=== PATIENT | female | born 1945 | race Caucasian/White ===

== ENCOUNTER 2019-05-29 14:25 | Inpatient (IN) ==
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
[2019-05-29] MEDS ORDERED: VANCOMYCIN 1 GM/NS 1 GM/250 ML IVPB IV ONE (16:53)
[2019-05-29] MEDS ORDERED: VANCOMYCIN IV PER PHARMACY MISC SCH (17:15)
[2019-05-29 17:24] LABS: BASO# 0.01 X1000 (0.0-0.2); BASO% 0.1 % (0.0-0.8); EOS# 0.13 X1000 (0.0-0.7); EOS% 1.7 % (0.0-10.0); HEMATOCRIT 40.9 % (37.0-47.0); HEMOGLOBIN 13.3 g/dL (12.0-16.0); LYMPH# 0.97 X1000 (1.2-3.4); LYMPH% 12.6 % (20.5-51.1); MCH 33.2 PG (27-31); MCHC 32.5 g/dL (33-37); MONO# 1.15 X1000 (0.11-0.59); MONO% 14.9 % (1.7-9.3); MPV 10.4 FL (7.4-10.4); NEUT# 5.45 X1000 (1.4-6.5); NEUT% 70.7 % (42.2-75.2); PLT 205 X1000 (130-400); RBC 4.01 XMIL (4.2-5.4); RDW 13.2 % (11.5-14.5); WBC 7.71 X1000 (4.8-10.8)
[2019-05-29 17:26] LABS: INR 0.86; PROTIME 11.8 Seconds (11.0-16.0)
[2019-05-29 17:27] LABS: PTT 38.2 Seconds (22.3-41.8)
[2019-05-29 17:38] LABS: AGAP 16; ALB/GLOB RATIO 1.1; ALBUMIN 4.3 g/dL (3.5-5.0); ALKALINE PHOSPHATASE 92 U/L (32-104); BUN 14 mg/dL (8-22); CALCIUM 10.1 mg/dL (8.8-10.2); CHLORIDE 99 mmol/L (98-107); COSMO 277; CREATININE 0.7 mg/dL (0.5-0.9); ESTIMATED GFR > 60; GLUCOSE 119 mg/dL (70-104); GOT 20 U/L (10-30); GPT 12 U/L (10-36); MAGNESIUM 1.7 mg/dL (1.5-2.7); POTASSIUM 3.9 mmol/L (3.5-5.1); SODIUM 138 mmol/L (136-145); TCO2 23 mmol/L (25-35); TOTAL BILIRUBIN 0.29 mg/dL (0.20-1.00); TOTAL PROTEIN 8.1 g/dL (6.3-8.3)
[2019-05-29] MEDS: NS 1,000 ML IV SCH (18:09)
[2019-05-29] MEDS: CLINDAMYCIN 600 MG/D5W 600 MG/50 ML IVPB IV SCH (18:12)
[2019-05-29] MEDS: NORCO-10 PO PRN (18:12)
[2019-05-29] MEDS: VANCOMYCIN 1 GM/NS 1 GM/250 ML IVPB IV SCH (18:35)
[2019-05-29] MEDS: PRAVACHOL PO SCH (20:03)
[2019-05-29] MEDS: LOPRESSOR PO SCH (21:14)
[2019-05-29 21:16] LABS: URINE SOURCE CLEAN CATCH
[2019-05-29 21:28] LABS: BILIRUBIN URINE NEGATIVE (NEGATIVE); BLOOD URINE SMALL (NEGATIVE); COLOR YELLOW; GLUCOSE URINE NEGATIVE (NEGATIVE); KETONE URINE TRACE mg/dL (NEGATIVE); LEUKOCYTES URINE TRACE (NEGATIVE); NITRITE URINE NEGATIVE (NEGATIVE); PROTEIN URINE 70 mg/dL (NEGATIVE); SP GRAVITY URINE 1.031; TURBIDITY URINE HAZY (CLEAR); UROBILINOGEN URINE 3 mg/dL (NORMAL)
[2019-05-29 21:29] LABS: UR EPITHELIAL CELLS >10 /HPF (<10); URINE BACTERIA NEGATIVE /HPF; URINE RBC <10 /HPF (<10)
[2019-05-30] MEDS: NORCO-10 PO PRN ×4 (00:23→22:30)
[2019-05-30] MEDS: CLINDAMYCIN 600 MG/D5W 600 MG/50 ML IVPB IV SCH ×3 (01:06→17:53)
[2019-05-30] MEDS: NS 1,000 ML IV SCH ×2 (04:38→18:01)
[2019-05-30] MEDS: PRILOSEC PO SCH (06:04)
--- NOTE | 2019-05-30 06:32 | Diag Imaging Result Doc PS360 ---
EXAM: CHEST-PORTABLE HISTORY: cellulitis TECHNIQUE: Portable chest single view COMPARISON: 08/26/2015 FINDINGS: The lungs are well expanded. The heart is not enlarged. The vessels are not distended. There are no infiltrates. No effusion identified. Left granuloma. IMPRESSION: Negative exam. Electronically signed by David Narayan 05/30/2019 6:29 AM
--- NOTE | 2019-05-30 07:31 | EKG Report ---
Test Performed on : 05/30/2019 07:12:03 AM Test Reason : chest pain Blood Pressure : / mmHG Vent. Rate : 082 BPM Atrial Rate : 082 BPM P-R Int : 164 ms QRS Dur : 080 ms QT Int : 394 ms P-R-T Axes : 078 031 076 degrees QTc Int : 460 ms Normal sinus rhythm. Normal ECG When compared with ECG of 17-MAY-2015 12:01, Minimal criteria for Anterior infarct are no longer present Nonspecific T wave abnormality no longer evident in Lateral leads Confirmed by Kelly AMATO, Juan Guzman ([id number]) on 05/31/2019 6:59:40 AM
[2019-05-30] MEDS: CENTRUM SILVER PO SCH (08:19)
[2019-05-30] MEDS: ICAR-C PO SCH (08:19)
[2019-05-30] MEDS: CALTRATE 600 + D PO SCH (08:19)
[2019-05-30] MEDS: ALTACE PO SCH (08:20)
[2019-05-30] MEDS: ASPIRIN PO SCH (08:20)
[2019-05-30] MEDS: LOPRESSOR PO SCH ×2 (08:21→20:18)
--- NOTE | 2019-05-30 10:16 | PROGRESS NOTE ---
DATE: 05/30/2019 SUBJECTIVE: Ms. Michael has remained afebrile. She has tenderness really going down to the proximal metatarsals and left hand, the dorsum of the hand. No drainage. Cellulitis extending from almost the elbow, down to her metatarsals. OBJECTIVE: Vital Signs: Temperature 98.1 degrees, pulse 80, respirations 18, blood pressure 110/66. HEENT: Pupils are equal and round. Lungs: Clear in all lung lomas. Cardiovascular: Regular rhythm and rate without murmur or S3. Abdomen: Soft. Skin: Warm and dry. Urine output is 600 mL. ASSESSMENT AND PLAN: 1. Cellulitis. Cat bite on her left arm does not appear to be necrotizing fasciitis, but she is having tenderness in the dorsum of the hand to the metatarsals. The plan, I think, is that Dr. Marcelino Harvey is going to open it up and debride it and put a wound VAC on it. She is right now on clindamycin and vancomycin, which covers for gram-positive organisms, and I think I will add Rocephin just to have a better gram-negative coverage. 2. History of coronary artery disease. No sign of active ischemia. 3. History of osteoarthritis and chronic pain. Aware. REVIEW OF ORDERS: I do not see any change at this point, except that we will add Rocephin 1 gram daily. cc: Dejuan Mathias MD
[2019-05-30] MEDS: ROCEPHIN 1 GM in NS 50 ML IV SCH (13:33)
[2019-05-30] MEDS: PRAVACHOL PO SCH (20:18)
[2019-05-31] MEDS: CLINDAMYCIN 600 MG/D5W 600 MG/50 ML IVPB IV SCH ×3 (00:04→18:31)
[2019-05-31] MEDS: NORCO-10 PO PRN ×2 (02:44→11:03)
[2019-05-31] MEDS: NS 1,000 ML IV SCH ×3 (04:55→19:49)
[2019-05-31] MEDS: VANCOMYCIN 1 GM/NS 1 GM/250 ML IVPB IV SCH (05:00)
[2019-05-31] MEDS: PRILOSEC PO SCH (06:11)
[2019-05-31 07:25] LABS: BASO# 0.01 X1000 (0.0-0.2); BASO% 0.2 % (0.0-0.8); EOS# 0.18 X1000 (0.0-0.7); EOS% 3.5 % (0.0-10.0); HEMOGLOBIN 10.6 g/dL (12.0-16.0); LYMPH# 1.41 X1000 (1.2-3.4); LYMPH% 27.8 % (20.5-51.1); MCH 32.3 PG (27-31); MCHC 31.2 g/dL (33-37); MCV 103.7 FL (81-99); MONO# 0.75 X1000 (0.11-0.59); MONO% 14.8 % (1.7-9.3); MPV 10.8 FL (7.4-10.4); NEUT# 2.73 X1000 (1.4-6.5); NEUT% 53.7 % (42.2-75.2); PLT 194 X1000 (130-400); RBC 3.28 XMIL (4.2-5.4); RDW 13.2 % (11.5-14.5); WBC 5.08 X1000 (4.8-10.8)
[2019-05-31] MEDS ORDERED: DIPRIVAN 1% ONE ×2 (08:04→09:02)
[2019-05-31] MEDS ORDERED: XYLOCAINE-MPF 2% ONE ×2 (08:05→09:02)
[2019-05-31] MEDS ORDERED: FENTANYL ONE ×2 (08:05→10:04)
[2019-05-31] MEDS ORDERED: ZOFRAN ONE (08:05)
[2019-05-31 08:13] LABS: AGAP 13; BUN 8 mg/dL (8-22); CALCIUM 8.4 mg/dL (8.8-10.2); CHLORIDE 107 mmol/L (98-107); COSMO 281; CREATININE 0.4 mg/dL (0.5-0.9); ESTIMATED GFR > 60; GLUCOSE 90 mg/dL (70-104); POTASSIUM 3.6 mmol/L (3.5-5.1); SODIUM 142 mmol/L (136-145); TCO2 22 mmol/L (25-35)
--- NOTE | 2019-05-31 09:31 | PROGRESS NOTE ---
DATE: 05/31/2019 SUBJECTIVE: Ms. Michael feels a little better. Arm is a little less tender especially distally at the wrist. She is able to make a fist. OBJECTIVE: Vital signs: Temperature 98.2, pulse 69, respirations 16, blood pressure 134/60. HEENT: Pupils are equal and round. Lungs: Clear in all lung lomas. Cardiovascular exam: Regular rhythm and rate without murmur or S3. Abdomen: Soft. Skin: Warm and dry. Urine output is 1600 mL. ASSESSMENT AND PLAN: 1. Cellulitis, deep tissue fasciitis as well. Dr. Harvey is planning on opening that and debriding it and putting a wound VAC on. She is on Rocephin, clindamycin, and vancomycin at this point. I think we can back that down pretty soon. 2. History of coronary artery disease. No sign of active ischemia. 3. History of osteoarthritis. REVIEW OF HER ORDERS: She is on pravastatin 40 mg at bedtime, aspirin 81 mg a day, calcium carbonate 1 a day, clindamycin 600 mg IV q.8 hours, getting hydrocodone p.r.n. pain, iron carbonyl and ascorbic acid 1 a day, Lopressor 12.5 mg b.i.d., multivitamin 1 a day, normal saline 85 mL an hour, Altace 5 mg a day, ceftriaxone 1 g q.24 hours, vancomycin 1 g q.36 hours. LABORATORY: Lab from this morning, white count 5080, hematocrit 34, platelet count 194,000. Sodium 142, potassium 3.6, chloride 107, BUN 8, creatinine 0.4, calcium 8.4. cc: Dejuan Mathias MD
[2019-05-31] MEDS: ALTACE PO SCH (11:29)
[2019-05-31] MEDS: ICAR-C PO SCH (11:29)
[2019-05-31] MEDS: CALTRATE 600 + D PO SCH (11:29)
[2019-05-31] MEDS: CENTRUM SILVER PO SCH (11:29)
[2019-05-31] MEDS: LOPRESSOR PO SCH ×2 (11:29→20:54)
[2019-05-31] MEDS: ASPIRIN PO SCH (11:30)
[2019-05-31] MEDS: ROCEPHIN 1 GM in NS 50 ML IV SCH (11:30)
[2019-05-31] MEDS ORDERED: ZOFRAN IV PRN (12:14)
[2019-05-31] MEDS ORDERED: ZOFRAN PO PRN (12:14)
[2019-05-31] MEDS: NORCO-5 PO PRN (15:17)
--- NOTE | 2019-05-31 15:38 | OPERATIVE NOTE ---
PROCEDURE DATE: 05/31/2019 PREOPERATIVE DIAGNOSIS: Cat bite, left forearm. POSTOPERATIVE DIAGNOSIS: Cat bite, left forearm. PROCEDURE: Debridement 5 x 3 x 0.5 cm with placement of wound VAC. DESCRIPTION OF PROCEDURE IN DETAIL: The patient was brought to the operating room. After satisfactory induction of IV and LMA anesthesia, her left forearm was prepped and draped in the appropriate manner. There is scarring from a total shoulder replacement in the left shoulder. The cat bites were in the mid forearm on the dorsal aspect; 2 canine punctures several centimeters apart. Oval incision incorporating both fang romero was excised with skin and subcutaneous tissue down to the fascia. Muscle appeared satisfactory beneath the fascia. Anaerobic and aerobic cultures were obtained. Hemostasis was obtained by electrocautery. A wound VAC was subsequently deployed after peroxide irrigation. A satisfactory seal was obtained. The patient was subsequently awakened and extubated in the operating room and transferred to recovery. Estimated blood loss Was around 20 mL. cc: MD Dejuan Santoyo MD
[2019-05-31] MEDS: PRAVACHOL PO SCH ×2 (19:46→20:54)
[2019-06-01] MEDS: CLINDAMYCIN 600 MG/D5W 600 MG/50 ML IVPB IV SCH ×3 (00:03→17:17)
[2019-06-01] MEDS: NORCO-5 PO PRN ×3 (00:03→22:03)
[2019-06-01] MEDS: NS 1,000 ML IV SCH ×3 (04:04→17:18)
[2019-06-01] MEDS: PRILOSEC PO SCH (06:11)
[2019-06-01] MEDS: CALTRATE 600 + D PO SCH (08:00)
[2019-06-01] MEDS: ASPIRIN PO SCH (08:01)
[2019-06-01] MEDS: LOPRESSOR PO SCH ×3 (08:01→20:51)
[2019-06-01] MEDS: ALTACE PO SCH (08:01)
[2019-06-01] MEDS: CENTRUM SILVER PO SCH (08:01)
[2019-06-01] MEDS: ICAR-C PO SCH (08:01)
[2019-06-01] MEDS ORDERED: THERA M PLUS PO SCH (09:00)
[2019-06-01] MEDS: ROCEPHIN 1 GM in NS 50 ML IV SCH (09:20)
--- NOTE | 2019-06-01 10:00 | PROGRESS NOTE ---
DATE: 06/01/2019 SUBJECTIVE: Ms. Michael feels much better. Heart feels better. She has a wound VAC on the left dorsal arm. She is able to make a little tighter fist. It still hurts down into the proximal hand around her proximal metacarpals, but much less discomfort, more range of motion. OBJECTIVE: Vital Signs: Temperature 98.0 degrees, pulse 70, respirations 18, blood pressure 155/88. Eyes: Pupils are equal and round. Lungs: Clear in all lung lomas. Cardiovascular exam: Regular rhythm and rate without murmur or S3. Abdomen: Soft. Skin: Warm and dry. : Urine output is 1400 mL. ASSESSMENT AND PLAN: Cat bite to left forearm with cellulitis. Dr. Marcelino Harvey did some debridement and placed a wound VAC. She is doing better. She is on broad-spectrum antibiotics. The urine did grow yeast 10,000, and Gram stain showed some white blood cells. Cultures pending. She is on clindamycin 600 mg intravenous every 8 hours. She is on Rocephin 1 g daily and vancomycin 1 gram intravenous every 36 hours. Doing better. Continue present regimen. Possibly home on Monday. cc: Dejuan Mathias MD
[2019-06-01] MEDS: VANCOMYCIN 1 GM/NS 1 GM/250 ML IVPB IV SCH (18:11)
[2019-06-01] MEDS: PRAVACHOL PO SCH ×2 (19:53→20:51)
[2019-06-02] MEDS: NS 1,000 ML IV SCH ×3 (02:06→11:05)
[2019-06-02] MEDS: CLINDAMYCIN 600 MG/D5W 600 MG/50 ML IVPB IV SCH ×3 (02:06→17:49)
[2019-06-02] MEDS: NORCO-5 PO PRN ×3 (05:48→19:41)
[2019-06-02] MEDS: PRILOSEC PO SCH ×2 (05:48→06:00)
[2019-06-02] MEDS: LOPRESSOR PO SCH ×3 (10:12→20:06)
[2019-06-02] MEDS: ROCEPHIN 1 GM in NS 50 ML IV SCH (10:13)
[2019-06-02] MEDS: ALTACE PO SCH (10:13)
[2019-06-02] MEDS: ICAR-C PO SCH (10:13)
[2019-06-02] MEDS: CALTRATE 600 + D PO SCH (10:13)
[2019-06-02] MEDS: ASPIRIN PO SCH (10:13)
[2019-06-02] MEDS: CENTRUM SILVER PO SCH (10:14)
--- NOTE | 2019-06-02 10:16 | PROGRESS NOTE ---
DATE: 06/02/2019 SUBJECTIVE: Ms. Michael feels much better. She can make a fist, almost make a tight fist with her left hand, and much less pain and swelling. She has a wound VAC on the left forearm. OBJECTIVE: Temperature 98.2 degrees, pulse 60, respirations 16, blood pressure 137/76. Pupils are equal and round. Lungs are clear in all lung lomas. Cardiovascular Examination: Regular rhythm and rate without murmur or S3. Abdomen is soft. Skin is warm and dry. Urine output was 2600 mL. ASSESSMENT AND PLAN: 1. Cat bite to the left forearm with cellulitis and a little bit of fasciitis. Had a debridement per Dr. Marcelino Harvey and wound VAC on the arm. Doing much better. Hopefully, she can go home tomorrow. Cultures have not revealed anything yet. 2. History of coronary artery disease. Aware. No sign of active ischemia. 3. History of osteoarthritis. cc: Dejuan Mathias MD
[2019-06-02] MEDS: PRAVACHOL PO SCH ×2 (19:40→20:06)
[2019-06-03] MEDS: NS 1,000 ML IV SCH (02:05)
[2019-06-03] MEDS: NORCO-5 PO PRN ×2 (02:14→12:52)
[2019-06-03] MEDS: CLINDAMYCIN 600 MG/D5W 600 MG/50 ML IVPB IV SCH ×2 (02:15→08:25)
[2019-06-03] MEDS: PRILOSEC PO SCH ×2 (05:50→05:59)
[2019-06-03] MEDS: ALTACE PO SCH (08:25)
[2019-06-03] MEDS: ASPIRIN PO SCH (08:26)
[2019-06-03] MEDS: CALTRATE 600 + D PO SCH (08:26)
[2019-06-03] MEDS: ICAR-C PO SCH (08:26)
[2019-06-03] MEDS: LOPRESSOR PO SCH (08:26)
[2019-06-03] MEDS: CENTRUM SILVER PO SCH (08:26)
[2019-06-03] MEDS ORDERED: VANCOMYCIN 1 GM/NS 1 GM/250 ML IVPB IV SCH (10:00)
--- NOTE | 2019-06-03 10:00 | PROGRESS NOTE ---
DATE: 06/03/2019 SUBJECTIVE: Ms. Michael feels much better. Left arm feels much better. She can make a fist. OBJECTIVE: Vital Signs: She remains afebrile, temperature 98.2 degrees, pulse 62, respirations 19, blood pressure 162/63. HEENT: Pupils are equal and round. Lungs: Clear in all lung lomas. Cardiovascular: Regular rhythm and rate without murmur or S3. Abdomen: Soft. Skin: Warm and dry. ASSESSMENT AND PLAN: 1. Cat bite, left forearm cellulitis, a little bit of fasciitis. Debridement, wound VAC. Dr. Marcelino Harvey look at it. He may remove the wound VAC. She may get to go home. Her microbiology with no growth so probably will put her on some p.o. antibiotics and I suspect she will get to go home. 2. Distant history of coronary artery disease. No sign of active ischemia. 3. History of osteoarthritis. We will see what happens. cc: Dejuan Mathias MD
[2019-06-03] MEDS: ROCEPHIN 1 GM in NS 50 ML IV SCH (10:50)
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
[2019-06-03 14:06] VITALS: BP 146/76
== END 2019-06-03 15:50 | disposition home health service (06) | DRG 572 ==
LOC: DIRADM 14:25 → 3N 16:34
PROVIDERS: ADMIT Emergency Medicine; ATTEND Emergency Medicine